=== PATIENT | female | born 1970 | race Caucasian/White ===

== ENCOUNTER 2017-08-16 13:23 | Emergency (ER) | payer OTHER ==
[~2017-08-16] VITALS: Ht 160 cm; Wt 59.0 kg
[~2017-08-16 13:23] MED LIST: TIROSINT88 MCG
[2017-08-16] MEDS ORDERED: AMOX-CLAV 875-1 EACH PO (18:53)
[2017-08-16] MEDS ORDERED: TUSSI PRES-B L120 M1 PO (18:53)
[2017-08-16] MEDS ORDERED: FLONASE16 GM NASAL (18:53)
[2017-08-16] MEDS ORDERED: ARMOUR THYROID15 MG PO (18:53)
[2017-08-16] MEDS ORDERED: FIORINAL 50-321 EACH PO (18:53)
== END 2017-08-16 19:03 | disposition home or self-care (01) ==
LOC: ER 13:23
DX: B34.9 Viral infection, unspecified (principal)

== ENCOUNTER 2018-07-08 01:47 | Inpatient (IN) | payer OTHER ==
[~2018-07-08] VITALS: Ht 157.5 cm; Wt 65.8 kg
[~2018-07-08 01:47] MED LIST changes: +AMOX-CLAV 875-1 EACH PO; +ARMOUR THYROID15 MG PO; +FIORINAL 50-321 EACH PO; +FLONASE16 GM NASAL; +TUSSI PRES-B L120 M1 PO
== END 2018-07-09 11:09 | disposition home or self-care (01) | DRG 343 ==
LOC: ER 01:47 → SEC-K 13:04 → SURG 13:04 → O/R 15:02 → SURG 18:55
PROVIDERS: Surgery
PROC: BW21ZZZ Computerized Tomography (CT Scan) of Abdomen and Pelvis (ICD-10-PCS; 2018-07-08)
PROC: 0DTJ4ZZ Resection of Appendix, Percutaneous Endoscopic Approach (ICD-10-PCS; principal; 2018-07-08 14:00)
DX: K35.890 Other acute appendicitis without perforation or gangrene (principal)

== ENCOUNTER 2021-09-23 11:59 | Emergency (ER) | payer OTHER ==
[~2021-09-23] VITALS: Ht 160 cm; Wt 66.7 kg
[2021-09-23] MEDS ORDERED: TIROSINT100 MCG PO (13:04)
== END 2021-09-23 18:10 | disposition home or self-care (01) ==
LOC: ER 11:59
DX: R42 Dizziness and giddiness (principal)

== ENCOUNTER → 2022-03-05 | Emergency (ER) | payer OTHER ==
[~2022-03-05] MED LIST changes: +TIROSINT100 MCG PO
== END | disposition left against medical advice (07) ==
LOC: ER 10:45
DX: Z53.21 Procedure and treatment not carried out due to patient leaving prior to being seen by health care provider (principal)